=== PATIENT | female | born 1985 | race Native Hawaiian/Other Pacific Islander ===

== ENCOUNTER 2019-07-10 22:59 | Emergency (ER) | payer OTHER ==
[2019-07-10 23:10] VITALS: BP 150/81
[2019-07-10 23:20] LABS: RAPID STREP SCREEN POSITIVE (Negative)
[2019-07-10] MEDS ORDERED: IBUPROFEN 600 MG TABLET PO STA (23:22)
[2019-07-10] MEDS ORDERED: ACETAMINOPHEN 325 MG TABLET PO STA (23:22)
[2019-07-10] MEDS ORDERED: AMOX/CLAV 875 MG/125 MG TABLET PO STA (23:22)
--- NOTE | 2019-07-10 23:23 | ED Physician Documentation ---
History of Present Illness - Stated complaint Stated Complaint: SORE THROAT/SINUS PRESSURE - Chief complaint Chief Complaint: Heent - Additonal information Additional information: This is a 34-year-old female who presents with nasal congestion and drainage, fever, sinus pain, clogged ears, and sore throat. Patient states that she has had some nasal drainage and sinus pain for over 1 week, it got better for a few days and then has worsened over the last several days. She describes mucopurulent drainage from her nose. She has pain over her frontal sinuses/forehead, and states this is currently moderate in severity. She has felt subjective fevers. Her ears feel clogged on both sides and she also has developed a sore throat. No significant cough, no shortness of breath, no abdominal pain, no dysuria, no vomiting or diarrhea Review of Systems Constitutional: reports: Fever Ears: reports: Other ("feel plugged") Nose: reports: Rhinorrhea / runny nose, Congestion Cardiac: denies: Chest pain / pressure Respiratory: denies: Dyspnea PD PAST MEDICAL HISTORY - Present Medications Home Medications: Ambulatory Orders Medication Instructions Recorded Confirmed Amox/Clav 875/125 [Augmentin] 1 each PO Q12H #14 tablet 07/10/19 - Allergies Allergies/Adverse Reactions: Allergies Allergy/AdvReac Type Severity Reaction Status Date / Time No Known Drug Allergies Allergy Verified 07/10/19 23:09 - Living Situation Living Arrangement: reports: At home - Social History Does the pt have substance abuse?: No - Family History Family history: reports: Non contributory PD ED PE NORMAL - Vitals Vital signs reviewed: Yes - General General: Alert and oriented X 3, No acute distress - HEENT HEENT: Other (There is small amount of nasal drainage which appears to be mucoid. Patient does have some tenderness to percussion of the frontal sinuses. Her tympanic membranes are flat with serous effusions bilaterally. There is some tonsillar edema, no exudate.) - Neck Neck: Supple, no meningeal sign - Cardiac Cardiac: Other (Regular rate in the high 80s on my examination) - Respiratory Respiratory: No respiratory distress, Clear bilaterally - Abdomen Abdomen: Normal bowel sounds, Soft, Non tender, Non distended - Derm Derm: Warm and dry - Neuro Neuro: Alert and oriented X 3, patient scheduling coordinator 2-12 intact, No motor deficit, No sensory deficit, Normal speech - Psych Psych: Normal mood, Normal affect Results - Vitals Vitals: Vital Signs - 24 hr 07/10/19 23:05 Temperature 37.9 C H Heart Rate 106 H Respiratory 24 Rate Blood Pressure 150/81 H O2 Saturation 97 - Labs Labs: Laboratory Tests 07/10/19 23:10 Group A Strep Rapid POSITIVE H PD MEDICAL DECISION MAKING - ED course ED course: Patient presents with sore throat, nasal drainage, subjective fever. She does have serous effusions, but no suppurative otitis media. She has a sore throat and tonsillar edema, strep though seems less likely given her nasal drainage. Her lungs are clear she has no chest pain or shortness of breath, no cough, no signs of pneumonia. Given her double worsening of her symptoms and her her sinus tenderness to percussion, we will treat her for bacterial sinusitis with a course of Augmentin, which would also cover strep throat as well. I discussed return precautions, supportive care, and patient was discharged home in good condition. Departure - Departure Disposition: 01 Home, Self Care Clinical Impression: Sinusitis Qualifiers: Sinusitis location: frontal Chronicity: acute Recurrence: not specified as recurrent Qualified Code(s): J01.10 - Acute frontal sinusitis, unspecified Condition: Good Instructions: ED Sinusitis Abx Tx Prescriptions: Amox/Clav 875/125 [Augmentin] 1 each PO Q12H #14 tablet Comments: You appear to have a sinusitis, which may be bacterial given the duration of your symptoms. We will treat this with a course of antibiotics. You may also use Tylenol and ibuprofen for discomfort. Try some saline rinses in your nose, and for congestion you may try Benadryl and other [id number] decongestants such as phenylephrine. Get plenty of rest, drink fluids, and practice good hand hygiene to prevent the spread of your illness. If you are having worsening symptoms such as difficulty breathing, severe headache, return to the emergency department Discharge Date/Time: 07/10/19 23:30
== END 2019-07-10 23:30 | disposition home or self-care (01) ==
LOC: ED 22:59
DX: J01.10 Acute frontal sinusitis, unspecified (principal); B96.89 Other specified bacterial agents as the cause of diseases classified elsewhere
CPT/HCPCS: 87430; 99283; 99284; A9270

== ENCOUNTER 2019-10-16 20:49 | Emergency (ER) | payer OTHER ==
[2019-10-16 22:38] LABS: BASOPHILS % (AUTO) 0.2 %; EOSINOPHILS # (AUTO) 0.3 10^3/uL (0.0-0.7); EOSINOPHILS % (AUTO) 3.7 %; HGB - HEMOGLOBIN 10.7 g/dL (12.0-16.0); LYMPHOCYTES # (AUTO) 2.5 10^3/uL (1.5-3.5); LYMPHOCYTES % (AUTO) 28.1 %; MEAN CORPUSCULAR HEMOGLOBIN 24.7 pg (27.0-31.0); MEAN CORPUSCULAR HGB CONC 31.3 g/dL (32.0-36.0); MEAN PLATELET VOLUME 9.2 fL (7.9-10.8); MONOCYTES # (AUTO) 0.5 10^3/uL (0.0-1.0); NEUTROPHILS # (AUTO) 5.6 10^3/uL (1.5-6.6); NEUTROPHILS % (AUTO) 61.6 %; PLT - PLATELET COUNT 325 10^3/uL (130-450); RED BLOOD COUNT 4.33 10^6/uL (4.20-5.40); RED CELL DISTRIBUTION WIDTH 13.2 % (12.0-15.0)
[2019-10-17 00:14] VITALS: BP 135/84
--- NOTE | 2019-10-17 00:25 | ED Physician Documentation ---
History of Present Illness - Stated complaint Stated Complaint: BLOOD IN STOOL - Chief complaint Chief Complaint: General - History obtained from History obtained from: Patient - Additonal information Additional information: Patient comes emergency department complaining of constipation and blood with bowel movements for the last 3 weeks. She states that when she is constipated, she notices a spot of blood on the TP after defecating. Pt denies bleeding in between BMs. She has not noticed any blood on her underwear. No abdominal pain. No lightheadedness or dizziness. She states that when she has soft stools, she does not have bleeding. Review of Systems Ten Systems: 10 systems reviewed and negative Constitutional: reports: Reviewed and negative Eyes: reports: Reviewed and negative Ears: reports: Reviewed and negative Nose: reports: Reviewed and negative Throat: reports: Reviewed and negative Cardiac: reports: Reviewed and negative Respiratory: reports: Reviewed and negative GI: reports: Constipation, Bloody / black stool : reports: Reviewed and negative Skin: reports: Reviewed and negative Musculoskeletal: reports: Reviewed and negative Neurologic: reports: Reviewed and negative Psychiatric: reports: Reviewed and negative Endocrine: reports: Reviewed and negative Immunocompromised: reports: Reviewed and negative PD PAST MEDICAL HISTORY - Past Medical History Past Medical History: No - Past Surgical History Past Surgical History: No - Present Medications Home Medications: Ambulatory Orders Medication Instructions Recorded Confirmed Amox/Clav 875/125 [Augmentin] 1 each PO Q12H #14 tablet 07/10/19 - Allergies Allergies/Adverse Reactions: Allergies Allergy/AdvReac Type Severity Reaction Status Date / Time No Known Drug Allergies Allergy Verified 10/16/19 21:07 - Social History Does the pt smoke?: No Smoking Status: Never smoker Does the pt drink ETOH?: No Does the pt have substance abuse?: No - Immunizations Immunizations are current?: Yes - POLST Patient has POLST: No PD ED PE NORMAL - Vitals Vital signs reviewed: Yes - General General: Alert and oriented X 3, No acute distress - HEENT HEENT: Atraumatic, PERRL, EOMI, Moist mucous membranes - Neck Neck: Supple, no meningeal sign - Cardiac Cardiac: RRR, No murmur, Strong equal pulses - Respiratory Respiratory: No respiratory distress, Clear bilaterally - Abdomen Abdomen: Soft, Non tender, Non distended - Rectal Rectal: Other (No gross blood. No hemorrhoids.) - Derm Derm: Warm and dry - Extremities Extremities: No deformity - Neuro Neuro: Alert and oriented X 3 - Psych Psych: Normal mood, Normal affect Results - Vitals Vitals: Oxygen O2 Source Room air - Labs Labs: Laboratory Tests 10/16/19 22:26 WBC 9.0 RBC 4.33 Hgb 10.7 L Hct 34.2 L MCV 79.0 L MCH 24.7 L MCHC 31.3 L RDW 13.2 Plt Count 325 MPV 9.2 Neut # (Auto) 5.6 Lymph # (Auto) 2.5 [place] # (Auto) 0.5 Eos # (Auto) 0.3 Baso # (Auto) 0.0 Absolute Nucleated RBC 0.00 Nucleated RBC % 0.0 PD MEDICAL DECISION MAKING - ED course Complexity details: reviewed results, re-evaluated patient, considered differential, d/w patient ED course: The pt was very well-appearing, and did not have any gross blood on exam. Her symptoms were mild, but I did note moderate anemia on her CBC. Given the mild nature of her bleeding, I suspect the etiology of the anemia is not the rectal bleeding, but I have advised the pt to follow up with her PCP about the anemia. We have discussed the usual indications for return. Departure - Departure Disposition: 01 Home, Self Care Clinical Impression: Hematochezia Constipation Qualifiers: Constipation type: unspecified constipation type Qualified Code(s): K59.00 - Constipation, unspecified Condition: Stable Instructions: ED Constipation Discharge Date/Time: 10/17/19 00:29
== END 2019-10-17 00:29 | disposition home or self-care (01) ==
LOC: ED 20:49
DX: K92.1 Melena (principal); K59.00 Constipation, unspecified
CPT/HCPCS: 36415; 85025; 99283; 99284

== ENCOUNTER 2021-01-06 16:27 | Outpatient (CLI) | payer OTHER | END 2021-01-06 16:28 | disposition home or self-care (01) | LOC: COV 16:27 | PROVIDERS: ATTEND Family Medicine | DX: U07.1 COVID-19 (principal) ==